=== PATIENT | female | born 1985 | race Caucasian/White ===

== ENCOUNTER 2021-03-27 08:14 | Emergency (ER) | payer OTHER, SELFPAY ==
--- NOTE | ~2021-03-27 | CT_ITS ---
EXAMINATION: CT abdomen pelvis w con EXAM DATE: 03/27/2021 09:29 INDICATION: Nausea vomiting diarrhea, epigastric pain. TECHNIQUE: Spiral CT of the abdomen and pelvis was performed following intravenous injection of 100 m L Omnipaque 350. Axial, coronal and sagittal images of the abdomen and pelvis were reviewed. The do se-length product (DLP) for this examination was 746.69 mGy-cm. The exposure was tailored according to patient size (auto mA exposure control), and iterative reconstruction (ASIR) was used as additiona l dose reduction technique. There is no prior study for comparison. FINDINGS: The liver, spleen, adrenal glands and pancreas are unremarkable. Gallbladder is unremarkab le. No biliary obstruction. Portal and splenic veins are patent. Kidneys enhance symmetrically. T here is no hydronephrosis. The uterus is not identified and has likely been surgically resected. Mu lticystic appearance to both ovaries. The bladder is collapsed at time of imaging limiting evaluatio n. There is no retroperitoneal or pelvic lymphadenopathy. The appendix is normal. There is small sliding gastroesophageal hiatal hernia. There is expected am ount of colonic stool. No free intraperitoneal gas. The heart is normal in size. There are no pe ricardial or pleural effusions. The lung bases are unremarkable. The bones are unremarkable. IMPRESSION: 1. No acute intra-abdominal findings. 2. Multicystic ovaries likely cysts and hemorrhagic cysts. 3. Small gastroesophageal hiatal hernia. Reviewed, dictated and finalized at location B.
[2021-03-27 08:37] VITALS: BP 126/91; PULSE 94; RESP 14; TEMP 36.7; O2SAT 98
[2021-03-27 08:41] LABS: Eosinophils Percent Auto 0.2 % (0-4.4); Hematocrit 41.6 % (37.0-47.0); Hemoglobin 13.6 g/dL (12.0-15.0); Immature Granulocyte Absolute 0.01 K/mm3 (0.00-0.031); Immature Granulocyte Percent A 0.2 % (0-0.5); Lymphocytes Absolute Auto 0.64 K/mm3 (0.9-3.2); Lymphocytes Percent Auto 13.6 % (18.3-44.2); Mean Corpuscular HGB Conc 32.7 g/dl (32-36); Mean Corpuscular Hemoglobin 29.7 pg (26-34); Mean Corpuscular Volume 90.8 fl (80-100); Mean Platelet Volume 9.5 fl (7.4-10.4); Monocytes Absolute Auto 0.3 K/mm3 (0.1-0.6); Neutrophils Absolute Auto 3.7 K/mm3 (1.3-6.7); Platelet Count Result 187 k/mm3 (150-375); Red Blood Count 4.58 M/mm3 (4.2-5.4); Red Cell Distribution Width 12.9 % (11.5-14.5); White Blood Count 4.7 K/mm3 (4.5-10.0)
[2021-03-27 08:54] LABS: Anion Gap 13 mmol/L (8-16); Blood Urea Nitrogen 17 mg/dL (7-17); Calcium 8.9 mg/dL (8.4-10.2); Carbon Dioxide 24 mmol/L (22-30); Chloride 100 mmol/L (98-107); Estimated Glomerular Filt Rate > 60; Glucose 111 mg/dL (65-110); Potassium 3.4 mmol/L (3.4-5.0); Sodium 137 mmol/L (137-145)
[2021-03-27] MEDS: SODIUM CHLORIDE 0.9% IV 1,000 ML 999 ML IV CONT (08:57)
[2021-03-27] MEDS: PROMETHAZINE HCL 25 MG/ML AMPUL 12.5 MG IV PUSH (08:57)
--- NOTE | 2021-03-27 09:00 | ED.NAVMDI ---
HPI - Nausea/Vomiting/Diarrhea General Chief complaint: Nausea/Vomiting/Diarrhea Stated complaint: N/V/Back Pain Time Seen by Provider: 03/27/21 08:30 Source: patient Mode of arrival: ambulatory Limitations: no limitations History of Present Illness HPI Narrative: Patient is a 35-year-old female complaining of nausea, vomiting, diarrhea need by epigastric pain that radiates to the back started last night. Vomitus is nonbilious nonbloody, diarrhea is loose watery nonbloody. Patient states that her pain is mild, dull started this morning. Patient denies any chest pain, shortness of breath, fever, chills or urinary symptoms. Related Data Home Medications Medication Instructions Recorded Confirmed levothyroxine 112 mcg tablet 112 mcg PO DAILY 08/09/20 Allergies Allergy/AdvReac Type Severity Reaction Status Date / Time No Known Allergies Allergy Verified 08/09/20 13:02 Review of Systems Review of Systems: All systems reviewed & are unremarkable except as noted in HPI and below Constitutional: Constitutional: Denies body ache(s), Denies chills, Denies excessive sweating, Denies fatigue, Denies fever(s), Denies headache(s), Denies lethargy, Denies malaise, Denies weakness and Denies weight loss Eyes: Eyes: Denies blurry vision, Denies change in vision and Denies loss of vision ENT: Denies dizziness, Denies ear discharge, Denies headache(s), Denies lip swelling, Denies epistaxis, Denies nasal congestion, Denies neck pain, Denies throat swelling and Denies tongue swelling Cardiovascular: Cardiovascular: Denies chest pain, Denies chest pain at rest, Denies chest pain with activity, Denies diaphoresis, Denies rapid heart rate, Denies edema, Denies irregular heart rhythm, Denies lightheadedness, Denies palpitations, Denies dyspnea and Denies dyspnea on exertion Respiratory: Respiratory: Denies chest congestion, Denies cough, Denies hemoptysis, Denies dyspnea and Denies dyspnea on exertion Gastrointestinal: Gastrointestinal: Denies melena, Denies hematochezia and Denies hematemesis Musculoskeletal: Musculoskeletal: Denies abnormal gait, Denies deformity, Denies joint swelling, Denies limited range of motion, Denies neck pain and Denies numbness Neurologic: Denies Abnormal speech present, Denies abnormal gait, Denies confusion, Denies dizziness, Denies headache(s), Denies focal weakness, Denies loss of vision, Denies numbness, Denies Other visual disturbances, Denies Sensory deficit (Neuro) and Denies weakness Psychiatric: Psychiatric: Denies confusion, Denies depression, Denies auditory hallucinations, Denies homicidal ideation and Denies suicidal ideation Endocrine: Endocrine: Denies cold intolerance, Denies excessive sweating, Denies fatigue, Denies heat intolerance and Denies palpitations Hematologic/Lymphatic: Hematologic/Lymphatic: Denies easy bleeding and Denies easy bruising Allergic/Immunologic: Allergic/Immunologic: Denies lip swelling, Denies throat swelling and Denies tongue swelling PMFSH Past Medical History Medical History Compensated hypothyroidism Fibroids, intramural H/O Graves' disease Hx of radioactive iodine thyroid ablation Hyperthyroidism Surgical History Surgical History Hx of hysterectomy Family History Family History Father Family history of thyroid disease Family history of gastrointestinal disorder Patient's father is in good health Sibling Family history of thyroid disease Family history of mental disorder Family history of hypothyroidism Patient's sister is in good health Patient's brother is in good health Mother Hypertension Patient's mother is in good health Grandparent Diabetes mellitus Social History Social History Social History: Smoking st
[2021-03-27 10:00] VITALS: BP 122/85; PULSE 98; RESP 14; O2SAT 98
[2021-03-27 10:09] LABS: Add Urine Microscopic? YES; Appearance Urine Cloudy (Clear); Bacteria Urine Trace /hpf; Bilirubin Urine Negative (Negative); Blood Urine 1+ (Negative); Color Urine Yellow (Yellow); Glucose Urine UA Negative (Negative); Ketones Urine Negative (Negative); Leukocyte Esterase Ur Negative LEU/UL (Negative); Mucus Urine Moderate /lpf; Nitrate Urine Negative (Negative); Protein Urine 1+ mg/dL (Negative); Squamous Epithelial Cell Urine Many /hpf (Few); WBC Urine 0-3 /hpf
[2021-03-27 10:11] LABS: Specific Grav Ur 1.033 (1.001-1.035)
[2021-03-27] MEDS: ONDANSETRON INJ 4 MG/2 ML VIAL IV PUSH (10:48)
[2021-03-27 11:00] VITALS: BP 113/78; PULSE 67; RESP 14; O2SAT 98
[2021-03-27 11:30] VITALS: BP 115/79; PULSE 79; RESP 14; O2SAT 98
== END 2021-03-27 11:45 | disposition home or self-care (01) ==
PROVIDERS: Emergency Provider Emergency Medicine; PCP Family Medicine
DX: K52.9 Noninfective gastroenteritis and colitis, unspecified (principal); E05.00 Thyrotoxicosis with diffuse goiter without thyrotoxic crisis or storm
CPT/HCPCS: 36415; 74177; 80048; 81001; 81025; 85025; 96361; 96374; 96375; 99284; J2405; J2550; J7030; Q9967

== ENCOUNTER 2023-11-23 07:41 | Outpatient (CLI) | payer BC, SELFPAY ==
--- NOTE | ~2023-11-23 | US_ITS ---
Limited Abdominal Sonogram: Real-time sonographic imaging of the right upper quadrant was performed. Clinical History: Abdominal pain Findings: The liver appears mildly echogenic. There is a 2 cm hypoechoic mass or possible area of fa tty sparing in the liver. No biliary dilatation evident. Main portal vein demonstrates normal directi on of flow. The gallbladder is well distended, and appears normal with no evidence of gallstone or wa ll thickening. The common bile duct measures 4 mm. The visualized pancreas, aorta, and IVC are unrem arkable. Impression: 2 cm hypoechoic mass versus possible fatty sparing in the liver. Pre and postcontrast MR recommended to further evaluate. Probable background fatty infiltration of liver. Reviewed, dictated and finalized at location . Impression: 2 cm hypoechoic mass versus possible fatty sparing in the liver. Pre and postco ntrast MR recommended to further evaluate. Probable background fatty infiltration of liver.
== END 2023-11-23 07:42 ==
LOC: MICIMG 07:42
PROVIDERS: PCP Obstetrics & Gynecology; Visit Provider Obstetrics & Gynecology
DX: R10.10 Upper abdominal pain, unspecified (principal)
CPT/HCPCS: 76705

== ENCOUNTER 2023-12-07 10:43 | Outpatient (CLI) | payer BC, SELFPAY ==
--- NOTE | ~2023-12-07 | MR_ITS ---
EXAMINATION: MR abdomen wo/w con DATE: 12/07/2023 11:48 INDICATION: Liver mass evident on prior ultrasound. Upper abdominal pain. TECHNIQUE: Magnetic resonance imaging (MRI) of the abdomen was performed without and with 18 mL Multi ho intravenous contrast. Sequences included coronal T2-weighted SS-FSE, coronal and axial FS 2D-F IESTA, axial STIR FSE, axial T2-weighted SS-FSE, axial T2-weighted FS SS-FSE, axial diffusion-weighte d SE, axial dual-echo T1-weighted FSPGR, and axial and coronal T1-weighted LAVA. Postcontrast axial T 1-weighted LAVA images were obtained in a time course. Postcontrast coronal T1-weighted LAVA images w ere obtained. COMPARISON: CT dated 03/27/2021 and ultrasound dated 11/23/2023 FINDINGS: Heart size is normal. No pericardial or pleural effusion. Normal liver. No evident correlate for the small hypoechoic region in the right hepatic lobe. Gallbladder, spleen, pancreas, bilateral adrenal g lands and kidneys are normal. No intra or extrahepatic periductal dilation. There are a few scattered colonic diverticula without adjacent comparison to suggest diverticulitis. No bowel obstruction. No pathologically enlarged abdominal or upper pelvic lymphadenopathy. Bones are unremarkable normal eun ow signal throughout. IMPRESSION: 1. Normal abdominal MRI. No correlate identified for the hypoechoic region seen in the right hepatic lobe on prior ultrasound. Reviewed, dictated and finalized at location B.
== END 2023-12-07 10:44 ==
PROVIDERS: Visit Provider Obstetrics & Gynecology
DX: R93.5 Abnormal findings on diagnostic imaging of other abdominal regions, including retroperitoneum (principal)
CPT/HCPCS: 74183; A9577